=== PATIENT | female | born 1990 | race Two or more races ===

== ENCOUNTER 2022-05-03 22:39 | Emergency (ER) | payer OTHER ==
[~2022-05-03] VITALS: Ht 167.6 cm; Wt 74.8 kg
[2022-05-03] MEDS ORDERED: PRENATAL + DHA1 EAC1 PO (23:00)
[2022-05-04] MEDS ORDERED: FLONASE16 GM NASAL (04:22)
== END 2022-05-04 04:27 ==
LOC: ER 22:39
DX: O16.2 Unspecified maternal hypertension, second trimester (principal); Z3A.27 27 weeks gestation of pregnancy; R51.9 Headache, unspecified

== ENCOUNTER 2022-05-09 14:41 | Inpatient (IN) | payer OTHER ==
[~2022-05-09] VITALS: Ht 165.1 cm; Wt 0.9 kg
[~2022-05-09 14:41] MED LIST: FLONASE16 GM NASAL; PRENATAL + DHA1 EAC1 PO
== END 2022-05-20 18:09 | disposition home or self-care (01) | DRG 788 ==
LOC: LDR 14:41
PROVIDERS: ADMIT Specialist; ATTEND Specialist
PROC: 4A1HXCZ Monitoring of Products of Conception, Cardiac Rate, External Approach (ICD-10-PCS; 2022-05-09)
PROC: BY4CZZZ Ultrasonography of Second Trimester, Single Fetus (ICD-10-PCS; 2022-05-09)
PROC: 10D00Z1 Extraction of Products of Conception, Low, Open Approach (ICD-10-PCS; principal; 2022-05-14 17:00)
DX: O14.24 HELLP syndrome, complicating childbirth (principal); O36.5920 Maternal care for other known or suspected poor fetal growth, second trimester, not applicable or unspecified; O32.1XX0 Maternal care for breech presentation, not applicable or unspecified; O26.842 Uterine size-date discrepancy, second trimester; Z3A.27 27 weeks gestation of pregnancy; Z37.0 Single live birth; Z20.822 Contact with and (suspected) exposure to COVID-19